=== PATIENT | male | born 1955 | race American Indian/Alaskan Native ===

== ENCOUNTER 2016-07-03 23:47 | Emergency (ER) | payer SELFPAY | END 2016-07-04 00:40 | disposition left against medical advice (07) | LOC: ED 23:47 | DX: R07.9 Chest pain, unspecified (principal); K92.0 Hematemesis; Z53.21 Procedure and treatment not carried out due to patient leaving prior to being seen by health care provider | CPT/HCPCS: 93005; 93010 ==